=== PATIENT | male | born 1985 | race Caucasian/White ===

== ENCOUNTER 2018-05-10 12:25 | Emergency (ER) | payer OTHER, SELFPAY ==
[2018-05-10 12:31] VITALS: BP 135/85; PULSE 96; RESP 17; TEMP 36.4; O2SAT 100
--- NOTE | 2018-05-10 12:38 | ED.GENADUL_ITS ---
Discharge Plan Disposition Patient Disposition: HOME Condition: Good Discharge Details Chief Complaint: Cellulitis Clinical Impression: Cellulitis of groin, left Primary Care Provider: Vita Hartley ED Provider: Daniel Braun Home Meds and New Rx's Prescriptions: New sulfamethoxazole-trimethoprim [Bactrim DS] 800-160 mg tablet 1 tab PO DAILY Qty: 14 RF: 0 Continue loratadine-pseudoephedrine [Claritin-D 24 Hour] 1 EACH tablet extended release 24 hr 1 tab PO DAILY RF: 0 multivitamin 1 EACH capsule 1 cap PO DAILY RF: 0 Discharge Instructions Instructions: Cellulitis (ED) Additional Instructions: you should be contacted with an appointment with the general surgery clinic in case this needs to be drained if more fluid collects if you have severe pain or fevers return to the emergency department Medical Decision Making pt comes in with cyst in left groin area for a few weeks but last 3-4 days has been more painful recently, tried to jett it this morning and wasn't sure if he got it so came here. Has mild erythema consistent with cellulitis, no visible fluid collection on bedside u/s but does have area that when I sqeezed where he lanced did have some mild white discharge. I suspect he was able to jett it and drained himself, will start abx and have him f/u with general surgery in case it needs to be redrained. HE has no fevers, severe pain and appears well systemically so doubt sepsis or nec fasc at thsi time. Has no testicle pain or swelling so doubt entities such as testicle abscess Differential Diagnosis abscess, cyst, cellulitis HPI General Mode of arrival: ambulatory . Date/Time Provider Initiated Documentation: 05/10/18 12:30 . Limitations to Documentation: no limitations . Information obtained by: patient . History of Present Illness 32 year old M presents to the emergency department with the chief complaint of left groin lesion, described as mild, with intensity rated at 3. Quality is described as burning, Patient reports no radiation. Patient started experiencing this day(s) (4) and it has been constant. No relieving factors improve symptom(s), No exacerbating factors reported . Patient did receive the following treatments prior to arrival, none Related Data Home Medications Medication Instructions Recorded Confirmed multivitamin 1 cap PO DAILY 11/29/17 12/26/17 loratadine-pseudoephedrine 1 tab PO DAILY 12/20/17 12/26/17 [Claritin-D 24 Hour] sulfamethoxazole-trimethoprim 1 tab PO DAILY #14 tab 05/10/18 [Bactrim DS] Previous Rx's Medication Instructions Recorded sulfamethoxazole-trimethoprim 1 tab PO DAILY #14 tab 05/10/18 [Bactrim DS] Allergies Allergy/AdvReac Type Severity Reaction Status Date / Time latex Allergy Unverified 12/26/17 23:08 General Stated Complaint: Cellulitis GIANA: 5 Review of Systems Review of Systems All systems reviewed & are unremarkable except as noted in HPI and below Constitutional Denies chills, Denies fever(s) and Denies weakness Eyes Denies loss of vision ENT Denies change in voice Cardiovascular Denies chest pain and Denies dyspnea Respiratory Denies dyspnea Gastrointestinal Denies abdominal pain, Denies nausea and Denies vomiting Musculoskeletal Denies joint swelling Neurologic Denies loss of vision and Denies weakness [facility] Social History Smoking/Tobacco Use Status: Current every day Social History Smoking/Tobacco Use Status: Current every day Exam Const General: no acute distress Orientation: alert HENMT Head: normal to inspection Ears: external ears normal General nose exam: external nose normal Mouth: moist mucous membranes Eyes General: appearance normal, both eyes and all related structures Neck Neck: normal visual inspection Resp Effort & Inspection: normal respiratory effort and able to speak in complete sentences Cardio Rate: regular rate Male General Exam: Yes normal external exam Penis: normal penis Scrotum: scrotum normal, no ecchymosis and no scrotal swelling Skin General skin exam: other (mild 2x3cm erythema in left groin) Neuro General: alert and oriented x3 Extrem General: normal to inspection Psych Mental Status: mental status grossly normal Course Vital Signs Temperature 36.4 C L 05/10/18 12:31 Pulse 96 H 05/10/18 12:31 Respiratory Rate 17 05/10/18 12:31 Blood Pressure 135/85 05/10/18 12:31 Pulse Oximetry 100 05/10/18 12:31 Temperature 36.4 C L 05/10/18 12:31 Temperature Source Skin 05/10/18 12:31 Pulse 96 H 05/10/18 12:31 Respiratory Rate 17 05/10/18 12:31 Blood Pressure 135/85 05/10/18 12:31 Blood Pressure Position Sitting 05/10/18 12:31 Pulse Oximetry 100 05/10/18 12:31 Oxygen Delivery Method Room Air 05/10/18 12:31 Oxygen Flow Rate 0 05/10/18 12:31
[2018-05-10 12:51] VITALS: PULSE 78; TEMP 36
== END 2018-05-10 12:55 | disposition home or self-care (01) ==
LOC: ER 13:09
PROVIDERS: Emergency Provider Emergency Medicine; PCP Nurse Practitioner
DX: L03.314 Cellulitis of groin (principal)
CPT/HCPCS: 99283

== ENCOUNTER 2021-05-31 11:51 | Emergency (ER) | payer SELFPAY ==
[2021-05-31 12:23] VITALS: BP 151/89; PULSE 84; RESP 16; TEMP 37; O2SAT 97
--- NOTE | 2021-05-31 12:29 | ED.GENADUL_ITS ---
Discharge Plan Disposition Patient Disposition: HOME Condition: Stable Discharge Details Clinical Impression: Abscess of axilla, right Primary Care Provider: None,None ED Provider: Yanet Bolanos Home Meds and New Rx's Prescriptions: New cephalexin 500 mg capsule 500 mg PO QID 7 Days Qty: 28 RF: 0 sulfamethoxazole-trimethoprim [Bactrim DS] 800-160 mg tablet 1 tab PO BID 7 Days Qty: 14 RF: 0 Continued loratadine-pseudoephedrine [Claritin-D 24 Hour] 1 EACH tablet extended release 24 hr 1 tab PO DAILY RF: 0 trazodone 50 mg Tablet 50 mg PO PRN PRNRF: 0 amitriptyline 10 mg Tablet 10 mg PO PRN PRNRF: 0 multivitamin 1 EACH capsule 1 cap PO DAILY RF: 0 Discharge Instructions Instructions: Cellulitis (ED), Abscess (ED) Additional Instructions: Your exam is concerning for 2 abscesses in your right armpit. He does appear to have opened and drained. I am concerned that you have surrounding infection in the skin. Please take the 2 antibiotics prescribed. Even if symptoms improve, please take the entire course. You may use warm compresses to help express any further fluid. You may use Tylenol and/or ibuprofen as needed for discomfort. As we discussed, please use antimicrobial soap to help prevent this in the future. I have referred you to a local primary and have asked that you be rechecked next week. If you develop increased swelling, spreading of the redness, fever/chills redness is worsening symptom please seek care urgently once again. Discharge Data Discharge Date/Time-TO BE ENTERED AT DEPARTURE: 05/31/21 13:43 Medical Decision Making Patient is a 35-year-old male presented with chief complaint of right axillary abscess. He states that he has had difficulty with abscesses historically but that they typically present in the groin. He states that the symptoms began a few days ago and have increasing discomfort. He has no difficulty drainage in the axilla. He denies any fevers or chills. States that the pain has started to radiate around the armpit. On exam, patient appears nontoxic. He does appear slightly anxious. He has 2 focal areas consistent with abscesses. However, they do appear to have drained. Crusted over open areas are noted centrally. There is surrounding erythema but appears to be spreading posterior and inferior. These areas are indurated. I did explore these with the ultrasound and I do not note any fluid collection. History exam is most consistent with draining abscesses with surrounding cellulitis. As I am concerned to cover for MRSA, will cover with Keflex and Bactrim. Encourage hydration. Advised Tylenol and/or ibuprofen for discomfort. I advised warm compresses. Advised antimicrobial soap. Return questions were discussed. Patient does not have a local primary care, I have asked care pepito griffin to ensure follow-up in 1 week for reevaluation. All his concerns were addressed and he is in agreement with plan. HPI General Mode of arrival: ambulatory . Date/Time Provider Initiated Documentation: 05/31/21 12:29 . Information obtained by: patient and RN notes reviewed . History of Present Illness 35 year old M presents to the emergency department with the chief complaint of right axillary pain, redness, swelling, described as severe and similar to prior episodes (has had abscess historically), Quality is described as aching, and is localized to the right and upper extremity. Patient reports radiation to (around the axilla). Patient started experiencing this day(s) and it has been constant. No relieving factors improve symptom(s), Movement worsens symptoms (any pressuree on the axilla) . Patient notes no other symptoms. and rash; denies fever/chills. Patient did receive the following treatments prior to arrival, none Related Data Home Medications Medication Instructions Recorded Confirmed multivitamin 1 cap PO DAILY 11/29/17 12/26/17 loratadine-pseudoephedrine 1 tab PO DAILY 12/20/17 05/31/21 [Claritin-D 24 Hour] amitriptyline 10 mg PO PRN PRN 05/31/21 05/31/21 cephalexin 500 mg PO QID 7 Days #28 cap 05/31/21 sulfamethoxazole-trimethoprim 1 tab PO BID 7 Days #14 tab 05/31/21 [Bactrim DS] trazodone 50 mg PO PRN PRN 05/31/21 05/31/21 Previous Rx's Medication Instructions Recorded cephalexin 500 mg PO QID 7 Days #28 cap 05/31/21 sulfamethoxazole-trimethoprim 1 tab PO BID 7 Days #14 tab 05/31/21 [Bactrim DS] Allergies Allergy/AdvReac Type Severity Reaction Status Date / Time latex Allergy Unverified 12/26/17 23:08 General Stated Complaint: RashLesion GIANA: 4 Review of Systems Constitutional Constitutional: Reports as per HPI, Denies chills and Denies fever(s) Musculoskeletal Musculoskeletal: Reports as per HPI Integumentary/Breasts Skin/Breast: Reports as per HPI Neurologic Neurologic: Reports as per HPI, Denies sensory deficit and Denies paresthesias PFSH All Active Problems (Updated 05/31/21 @ 13:28 by JEY Villegas) Abscess of axilla, right (Acute) Social History Smoking/Tobacco Use Status: Current every day Smoking risk assessment performed?: Yes Alcohol Intake: current Alcohol Intake frequency: holidays/special occasions only Drug use: Occasionally Substance use type: marijuana Do you feel safe at home: Yes Do you feel safe in your relationship?: Yes Exam Const General: cooperative, healthy appearing, comfortable, no acute distress and well developed Nutritional Appearance: average body habitus and well nourished Orientation: alert and awake Chest Chest: normal inspection of the chest (no pain with palpation) Chest/axillae images: 1. 2. 2 abscesses which have drained. Now indurated. No drainage or fluctuance. Surrounding erythema connecting 2 areas. No deep structre involvement palpable, no notable lymphadenopathy Resp Effort & Inspection: normal respiratory effort, able to speak in complete sentences and no respiratory distress Cardio Rate: regular rate Rhythm: regular rhythm Neuro General: patient alert and patient awake Cognition: normal cognition Speech: speech normal Gait: normal gait Sensory Exam: no sensory deficits noted Psych Appearance: grossly normal and well kempt Mental Status: mental status grossly normal Speech and Movement: speech and movement normal Course Vital Signs Vital signs: Vital Signs Temperature 37 C 05/31/21 12:23 Pulse 84 05/31/21 12:23 Respiratory Rate 16 05/31/21 12:23 Blood Pressure 151/89 H 05/31/21 12:23 Pulse Oximetry 97 05/31/21 12:23 Temperature 37 C 05/31/21 12:23 Temperature Source Temporal Artery Scan 05/31/21 12:23 Pulse 84 05/31/21 12:23 Respiratory Rate 16 05/31/21 12:23 Blood Pressure 151/89 H 05/31/21 12:23 Blood Pressure Position Sitting 05/31/21 12:23 Pulse Oximetry 97 05/31/21 12:23 Oxygen Delivery Method Room Air 05/31/21 12:23 Oxygen Flow Rate 0 05/31/21 12:23
--- NOTE | 2021-05-31 13:36 | NUR.NOTE ---
Nursing Note:CARE MANAGMENT GIVEN PT INFO TO ESTABLISH CARE AND TO BE SEEN FOR CYST WITHIN ONE WEEK, [facility]
--- NOTE | 2021-06-03 14:53 | CMACTNOTE_ITS ---
- If Service Date Differs Date of service: 06/03/21 Time of Service: 14:53 Care Management Activity Note Estiven is seen in the ED on 05/31/21 for an abscess of axilla. At the request of ED provider, CM coordinates a referral to Nicole Bone MD, of [facility], on-call provider, to assist Estiven in obtaining a follow up appointment and in establishing care with a PCP.
== END 2021-05-31 13:43 | disposition home or self-care (01) ==
PROVIDERS: Emergency Provider Physician Assistant
DX: L02.411 Cutaneous abscess of right axilla (principal)
CPT/HCPCS: 99283

== ENCOUNTER 2022-07-10 15:34 | Emergency (ER) | payer SELFPAY ==
[2022-07-10 15:36] VITALS: BP 149/88; PULSE 88; RESP 18; TEMP 37.4; O2SAT 98
--- NOTE | 2022-07-10 15:45 | DI.RAD_ITS ---
Exam(s) XR PORTABLE CHEST AP EXAM: XR PORTABLE CHEST AP CLINICAL HISTORY: PUI, R/O Pneumonia TECHNIQUE: 2D digital imaging was performed. COMPARISON: CR CHEST 2 VIEWS PA,LAT from 12/20/2017 FINDINGS: LUNGS: Clear. No pleural abnormality seen. HEART: Normal size. AORTA: Normal diameter. BONES: Unremarkable for age. Soft tissues: Unremarkable. IMPRESSION: No acute findings. DATA REPOSITORY: RADIATION DOSE DELIVERED:
--- NOTE | 2022-07-10 16:06 | W.ED.GENAD ---
Discharge Plan Disposition Patient Disposition: Home Condition: Stable Discharge Details Clinical Impression: COVID-19 Primary Care Provider: None,None ED Provider: Candace Mcadams Home Meds and New Rx's Prescriptions: Continued loratadine-pseudoephedrine [Claritin-D 24 Hour] 1 EACH tablet extended release 24 hr 1 tab PO DAILY trazodone 50 mg Tablet 50 mg PO PRN PRN amitriptyline 10 mg Tablet 10 mg PO PRN PRN Discharge Instructions Instructions: COVID-19 (Coronavirus Disease 2019) (ED) Additional Instructions: You have tested positive for COVID-19. No evidence of pneumonia on your chest x-ray. Please use the albuterol inhaler 1 to 2 puffs every 4-6 hours as needed for cough or wheezing. Please take Tylenol or Ibuprofen with food every 4-6 hours as needed for pain and swelling. May take multivitamin that includes zinc and increase intake of vitamin C. May take [id number] cough and cold medicine if needed. Return to the ER for any worsening shortness of breath, you may consider getting a pulse oximeter which she can get [id number] to monitor your oxygenation. Return to the ER if it is consistently less than 90% while at rest with a good Pleth. Please continue to isolate for the next 5 days and 24 hours after fever resolution. Wear a mask for a total of 10 days. Follow up with primary care provider in 7-10 days. Return to ED sooner if any worsening or concerns. Increase oral fluids. Stand Alone Forms: Work Release Discharge Data Discharge Date/Time-TO BE ENTERED AT DEPARTURE: 07/10/22 17:02 Medical Decision Making 37-year-old male presents to the ER with a chief complaint of URI type symptoms x1 week. He reports sore throat, cough, body aches, chills sweats, left-sided chest wall pain with deep breathing or cough and diarrhea. He did have a negative home COVID test on . He has been increasing oral fluids. Fluvid swab ordered, rapid swab was ordered by staff nuclear weapons officer in triage is positive for COVID. Chest x-ray ordered rule out pneumonia albuterol inhaler and 800 mg ibuprofen. COVID is positive I did discuss this with patient who verbalized understanding. Discussed home care quarantine instructions and strict return instructions. Patient remained hemodynamically stable throughout the remainder of his stay. Chest x-ray shows no evidence of pneumonia. He is this text was generated using [employer] dictation system, please disregard any oddities of phrase or misspellings. Imaging Data Radiologic Study: Imaging: X-Ray Radiologist's impression: EXAM: XR PORTABLE CHEST AP CLINICAL HISTORY: PUI, R/O Pneumonia TECHNIQUE: 2D digital imaging was performed. COMPARISON: CR CHEST 2 VIEWS PA,LAT from 12/20/2017 FINDINGS: LUNGS: Clear. No pleural abnormality seen. HEART: Normal size. AORTA: Normal diameter. BONES: Unremarkable for age. Soft tissues: Unremarkable. IMPRESSION: No acute findings. HPI General Mode of arrival: ambulatory. Date/Time Provider Initiated Documentation: 07/10/22 15:38. Limitations to Documentation: no limitations. Information obtained by: patient, RN notes reviewed and old records reviewed. HPI Narrative: 37-year-old male presents to the ER with a chief complaint of URI type symptoms x1 week. He reports sore throat, cough, body aches, chills sweats, left-sided chest wall pain with deep breathing or cough and diarrhea. He did have a negative home COVID test on . He has been increasing oral fluids. Has not taken any Tylenol or ibuprofen today. Past medical history includes anxiety bipolar disorder and PTSD. He does endorse marijuana denies alcohol. Related Data Home Medications Medication Instructions Recorded Confirmed loratadine-pseudoephedrine ER 10 1 tab PO DAILY 12/20/17 05/31/21 mg-240 mg tablet,extended [id number] (Claritin-D 24 Hour) amitriptyline 10 mg tablet 10 mg PO PRN PRN 05/31/21 07/10/22 trazodone 50 mg tablet 50 mg PO PRN PRN 05/31/21 07/10/22 Allergies Allergy/AdvReac Type Severity Reaction Status Date / Time latex Allergy Unverified 07/10/22 15:42 General Stated Complaint: GenMedical GIANA: 3 Review of Systems All systems reviewed & are unremarkable except as noted in HPI and below Cardiovascular Cardiovascular: Reports dyspnea Respiratory Respiratory: Reports cough, Denies hemoptysis, Reports pain with cough, Reports dyspnea, Denies stridor and Denies wheezing Gastrointestinal Gastrointestinal: Denies abdominal pain, Reports diarrhea, Reports nausea (Resolved) and Reports vomiting (Resolved) Allergic/Immunologic Allergic/Immunologic: Denies wheezing PFSH All Active Problems (Updated 07/10/22 @ 16:53 by Candace Mcadams NP) COVID-19 (Acute) Social History Smoking/Tobacco Use Status: Current every day Smoking risk assessment performed?: Yes Alcohol Intake: current Alcohol Intake frequency: holidays/special occasions only Drug use: Occasionally Substance use type: marijuana Do you feel safe at home: Yes Do you feel safe in your relationship?: Yes Exam Narrative Exam Narrative: Constitutional: Alert and oriented x3. Appears stated age. Normal body habitus. Head: Normocephalic, no trauma. Eyes: Pupils PERRL, Red reflex noted, EOM's intact. Eyelids symmetrical without lesions, discharge, or swelling. ENT: Left tympanic membrane has a fluid effusion behind it, right TM within normal limits, external ear normal to inspection, no mastoid TTP, swelling, or erythema, Nasal turbinates slightly boggy no nasal discharge. Normal dentition, Posterior pharynx erythemic, no exudate. Chest: RRR, Normal S1, S2, distal pulses intact. Resp: Lungs clear to auscultation bilaterally, no wheezes, rales, or Mild Rhonchi in the bases with cough Abdomen: Soft, non-distended, Normoactive bowel sounds all 4 quads. Musculoskeletal: Normal gait, 5/5 strength to all four extremities. Skin: No suspicious rashes or lesions. Capillary refill less than 2 sec. Hematologic/Lymphatic: No ecchymosis, no lymphadenopathy. Course Vital Signs Vital signs: Vital Signs Temperature 37.4 C 07/10/22 15:36 Pulse 88 07/10/22 15:36 Respiratory Rate 18 07/10/22 15:36 Blood Pressure 149/88 H 07/10/22 15:36 Pulse Oximetry 98 07/10/22 15:36 Temperature 37.4 C 07/10/22 15:36 Temperature Source Oral 07/10/22 15:36 Pulse 88 07/10/22 15:36 Respiratory Rate 18 07/10/22 15:36 Respiratory Effort Non-Labored 07/10/22 15:41 Blood Pressure 149/88 H 07/10/22 15:36 Blood Pressure Position Sitting 07/10/22 15:36 Pulse Oximetry 98 07/10/22 15:36 Oxygen Delivery Method Room Air 07/10/22 15:36 Oxygen Flow Rate 0 07/10/22 15:36 Pain Level 7 07/10/22 15:36
[2022-07-10] MEDS: Albuterol HFA 8 GM 60 PUFF INH IH (16:15)
[2022-07-10] MEDS: Ibuprofen 800 MG TAB PO (16:16)
[2022-07-10 16:17] VITALS: RESP 18
[2022-07-10 16:44] LABS: Influenza A PCR Negative (Negative); Influenza B PCR Negative (Negative); RSV PCR Negative (Negative)
[2022-07-10 16:48] LABS: COVID-19 PCR Positive (Negative); Source Nasopharynx
[2022-07-10 17:01] VITALS: BP 145/80; PULSE 88; RESP 18; TEMP 37.4; O2SAT 98
== END 2022-07-10 17:02 | disposition home or self-care (01) ==
PROVIDERS: Emergency Provider Registered Nurse Emergency
DX: U07.1 COVID-19 (principal)
CPT/HCPCS: 87637; 94640; 99283; 71045

== ENCOUNTER 2022-11-21 08:24 | Emergency (ER) | payer SELFPAY ==
[2022-11-21 08:28] VITALS: BP 125/74; PULSE 69; RESP 20; TEMP 36.8; O2SAT 99
[2022-11-21] MEDS: Bupivacaine 0.5% Pres-Free 30 ML VIAL (09:26)
--- NOTE | 2022-11-21 11:18 | ED.GENADUL_ITS ---
Discharge Plan Disposition Patient Disposition: Home Discharge Details Clinical Impression: Trapezius strain Primary Care Provider: None,None ED Provider: Randi Watts Home Meds and New Rx's Prescriptions: New cyclobenzaprine 10 mg tablet 10 mg PO TID PRNQty: 10 0RF Continued Claritin-D 24 Hour 1 EACH tablet extended release 24 hr 1 tab PO DAILY trazodone 50 mg Tablet 50 mg PO PRN PRN amitriptyline 10 mg Tablet 10 mg PO PRN PRN Patient Comments: patient states im no longer on that one multivitamin Tablet 1 tab PO DAILY Discharge Instructions Instructions: Lower Back Exercises (ED) Additional Instructions: Take ibuprofen and Tylenol as needed for pain Motrin 600 mg every 8 hours as needed for pain Take Flexeril as needed for musculoskeletal pain Limit lifting, pulling, pushing until symptomatic improvement. Stand Alone Forms: Work Release Medical Decision Making Reproducible pain on this patient who presents with upper back pain in the trapezius area, no rashes or lesions, lungs clear to auscultation, distal pulses intact, strength and sensation intact all 4 extremities, no midline back pain or flank pain, no chest tenderness or abdominal tenderness, no acute distress Will offer trigger point injection with bupivacaine to the trapezius region Patient received trigger point injection, almost complete alleviation in patient's pain complaints No indication for x-ray, low suspicion for fracture clinically Neurovascularly intact Low suspicion for intrathoracic process clinically, no hypoxia, tachypnea, tachycardia HPI General Date/Time Provider Initiated Documentation: 11/21/22 08:26 . HPI Narrative: This 37-year-old male presents with report of upper back pain that started few days ago at work. He states he has been doing a lot of heavy pulling pushing and moving. He states he has worked every day for the past 90 days. He thinks that he has not had time to heal in between injuries. He denies any strength or sensation changes to extremities. He denies any chest pain or shortness of breath. He denies radiation of pain into his arms or legs. Denies any changes in bowel or bladder. Denies stiff neck or fever. Denies any headache. Denies specific traumatic event. Related Data Home Medications Medication Instructions Recorded Confirmed loratadine-pseudoephedrine ER 10 1 tab PO DAILY 12/20/17 11/21/22 mg-240 mg tablet,extended [id number] (Claritin-D 24 Hour) amitriptyline 10 mg tablet 10 mg PO PRN PRN 05/31/21 07/10/22 trazodone 50 mg tablet 50 mg PO PRN PRN 05/31/21 11/21/22 cyclobenzaprine 10 mg tablet 10 mg PO TID PRN #10 tabs 11/21/22 multivitamin 1 tab PO DAILY 11/21/22 11/21/22 Previous Rx's Medication Instructions Recorded cyclobenzaprine 10 mg tablet 10 mg PO TID PRN #10 tabs 11/21/22 Allergies Allergy/AdvReac Type Severity Reaction Status Date / Time latex Allergy Unverified 11/21/22 08:31 General Stated Complaint: Nk/Back Pain GIANA: 3 PFSH All Active Problems (Updated 11/21/22 @ 09:17 by JEY Neri) COVID-19 (Acute) Trapezius strain (Acute) Social History Smoking risk assessment performed?: No Alcohol Intake: current Alcohol Intake frequency: holidays/special occasions only Drug use: Daily Substance use type: marijuana Do you feel safe at home: Yes Do you feel safe in your relationship?: Yes Course Vital Signs Vital signs: Vital Signs Temperature 36.8 C 11/21/22 08:28 Pulse 69 11/21/22 08:28 Respiratory Rate 20 11/21/22 08:28 Blood Pressure 125/74 11/21/22 08:28 Pulse Oximetry 99 11/21/22 08:28 Temperature 36.8 C 11/21/22 08:28 Pulse 69 11/21/22 08:28 Respiratory Rate 20 11/21/22 08:28 Respiratory Effort Normal 11/21/22 08:33 Blood Pressure 125/74 11/21/22 08:28 Pulse Oximetry 99 11/21/22 08:28 Oxygen Delivery Method Room Air 11/21/22 08:28 Oxygen Flow Rate 0 11/21/22 08:28 Pain Level 7 11/21/22 08:28 Comment 10/10 pain with movement 11/21/22 08:28
== END 2022-11-21 10:29 | disposition home or self-care (01) ==
PROVIDERS: Emergency Provider Physician Assistant
DX: S46.812A Strain of other muscles, fascia and tendons at shoulder and upper arm level, left arm, initial encounter (principal); Y99.0 Civilian activity done for income or pay
CPT/HCPCS: 20552

== ENCOUNTER 2023-07-24 08:04 | Emergency (ER) | payer SELFPAY ==
[2023-07-24 08:09] VITALS: BP 135/91; PULSE 80; RESP 16; TEMP 36.4; O2SAT 100
--- NOTE | 2023-07-24 08:33 | W.ED.GENAD ---
HPI General Date/Time Provider Initiated Documentation: 07/24/23 08:17. HPI Narrative: This 38-year-old male presents with sore throat, runny nose, facial for sinus congestion. Symptoms started yesterday per patient. Family member sick with similar symptoms, denies any chest pain or shortness of breath. States he tried to work today and felt exhausted and left to go home. States he needs a note for work. Related Data Home Medications Medication Instructions Recorded Confirmed amitriptyline 10 mg tablet 10 mg PO PRN PRN 05/31/21 07/24/23 trazodone 50 mg tablet 50 mg PO PRN PRN 05/31/21 07/24/23 Allergies Allergy/AdvReac Type Severity Reaction Status Date / Time latex Allergy Hives Unverified 07/24/23 08:08 General Stated Complaint: Sorethroat GIANA: 4 Course Vital Signs Vital signs: Vital Signs Temperature 36.4 C L 07/24/23 08:09 Pulse 80 07/24/23 08:09 Respiratory Rate 16 07/24/23 08:09 Blood Pressure 135/91 H 07/24/23 08:09 Pulse Oximetry 100 07/24/23 08:09 Temperature 36.4 C L 07/24/23 08:09 Temperature Source Oral 07/24/23 08:09 Pulse 80 07/24/23 08:09 Respiratory Rate 16 07/24/23 08:09 Respiratory Effort Normal, Non-Labored 07/24/23 08:11 Blood Pressure 135/91 H 07/24/23 08:09 Pulse Oximetry 100 07/24/23 08:09 Oxygen Delivery Method Room Air 07/24/23 08:09 Oxygen Flow Rate 0 07/24/23 08:09 Pain Level 4 07/24/23 08:09 Medical Decision Making This 38-year-old male presenting with upper respiratory symptoms, lungs clear to auscultation, afebrile and nontoxic, no acute distress, rhinorrhea noted, uvula midline, oropharynx patent, no erythema or abscess to oropharynx Suspect patient has upper respiratory infection, will continue with supportive care, reviewed with patient, work note for 2-day supply Vital stable, return precautions reviewed and patient expressed understanding Quality:SDOH Health Related Social Needs: No Data to Display PFSH All Active Problems (Updated 07/24/23 @ 08:26 by JEY Neri) Upper respiratory infection (Acute) COVID-19 (Acute) Social History Smoking/Tobacco Use Status: Current every day Tobacco Type: cigarettes Years smoked: 17 Smoking risk assessment performed?: Yes Alcohol Intake: current Alcohol Intake frequency: holidays/special occasions only Drug use: Daily Substance use type: marijuana Housing: house Do you feel safe at home: Yes Do you feel safe in your relationship?: Yes PAWSS Have you Been Recently Intoxicated or Drunk Within the Last 30 days?: No Have you Ever Experienced Previous Episodes of Alcohol Withdrawal?: No Have you ever Experienced Withdrawal Seizures?: No Have you ever Experienced Delirium Tremens(DT)s?: No Have you ever undergone Alcohol Rehabilitation Treatment (i.e, inpt ot outpatient treatment programs)?: No Have you ever Experienced Blackouts?: No Have you ever Combined Alcohol with other Downers within the last 90 days?: No Have you ever Combined Alcohol with any other Substance of Abuse during the last 90 days?: No Result: 0 Discharge Plan Disposition Patient Disposition: Home Discharge Details Clinical Impression: Upper respiratory infection ED Provider: Randi Watts Home Meds and New Rx's Prescriptions: Continued trazodone 50 mg Tablet 50 mg PO PRN PRN amitriptyline 10 mg Tablet 10 mg PO PRN PRN Patient Comments: patient states im no longer on that one Discharge Instructions Instructions: Upper Respiratory Infection (ED) Additional Instructions: Take ibuprofen and/or Tylenol for symptom control 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
== END 2023-07-24 08:38 | disposition home or self-care (01) ==
LOC: ER 08:44
PROVIDERS: Emergency Provider Physician Assistant
DX: J06.9 Acute upper respiratory infection, unspecified (principal)
CPT/HCPCS: 99283

== ENCOUNTER 2025-01-25 19:27 | Emergency (ER) | payer SELFPAY ==
[2025-01-25 19:28] VITALS: BP 133/82; PULSE 80; RESP 18; TEMP 36.2; O2SAT 98
[2025-01-25 19:32] VITALS: BP 133/78; PULSE 91; RESP 18; TEMP 36.7; O2SAT 98
--- NOTE | 2025-01-25 19:53 | ED.GENADUL_ITS ---
Discharge Plan Disposition Patient Disposition: Home Condition: Stable Discharge Details Clinical Impression: Sinusitis, Upper respiratory infection, viral Primary Care Provider: Unknown,Unknown ED Provider: Candace Mcadams Home Meds and New Rx's Prescriptions: New prednisone 50 mg tablet 50 mg PO DAILY 5 Days Qty: 5 0RF Rx Instructions: Take 1 tablet daily for the next 5 days No Action trazodone 50 mg Tablet 50 mg PO PRN PRN amitriptyline 10 mg Tablet 10 mg PO PRN PRN Patient Comments: patient states im no longer on that one Allergy Relief D-24hr 10-240 mg tablet extended release 24 hr 1 tab PO DAILY Discharge Instructions Instructions: Cough, runny nose, and the common cold, Sinusitis, Adult ED Additional Instructions: At this time your rapid strep is negative, negative COVID flu and RSV. I do suspect that you may have sinus congestion, however no antibiotics are necessary at this time. You may use Flonase or similar [id number] nasal spray as directed. Use the albuterol inhaler 1 or 2 puffs every 4-6 hours as needed for shortness of breath. Please take the prednisone as directed you are given the first dose here in the department this will help to decrease the inflammation in your airways. Gargle with warm salt water up to 3 times daily as needed. Please take Tylenol or Ibuprofen with food every 4-6 hours as needed for pain and swelling. Follow up with primary care provider in 3-5 days. Return to ED sooner if any worsening or concerns. Stand Alone Forms: Work Release Referrals: Primary Care Provider [Outside] - 2 weeks Referral Note: Establish care Clinical Impression: Sinusitis; Upper respiratory infection, viral Chan Palmer NP [NURSE PRACTITIONER, Medicine] Referral Note: Establish care HPI General Mode of arrival: ambulatory . Date/Time Provider Initiated Documentation: 01/25/25 19:34 . Limitations to Documentation: no limitations . Information obtained by: patient, RN notes reviewed and old records reviewed . Related Data Home Medications ?Medication ?Instructions ?Recorded ?Confirmed amitriptyline 10 mg tablet 10 mg PO PRN PRN 05/31/21 0 01/25/25 trazodone 50 mg tablet 50 mg PO PRN PRN 05/31/21 loratadine-pseudoephedrine ER 10 1 tab PO DAILY 01/25/25 mg-240 mg tablet,extended [id number] (Allergy Relief D-24hr) prednisone 50 mg tablet 50 mg PO DAILY Inflammation 5 days 01/25/25 #5 tabs Previous Rx's ?Medication ?Instructions ?Recorded prednisone 50 mg tablet 50 mg PO DAILY Inflammation 5 days 01/25/25 #5 tabs Allergies Allergy/AdvReac Type Severity Reaction Status Date / Time latex Allergy Hives Unverified 01/25/25 19:33 General Stated Complaint: RespSymp GIANA: 3 Exam Narrative Exam Narrative: Constitutional: Alert and oriented x3. Appears stated age. Normal body habitus. Head: Normocephalic, no trauma. Eyes: Pupils PERRL, Red reflex noted, EOM's intact. Eyelids symmetrical without lesions, discharge, or swelling. ENT: Left tympanic membrane with erythema bulging. Report, right TM within normal. External ear normal to inspection, no mastoid TTP, swelling, or erythema, Nasal turbinates boggy, no nasal discharge. Normal dentition, Posterior pharynx erythemic, questionable exudate noted on the left side, Uvula midline Chest: RRR, Normal S1, S2, distal pulses intact. Resp: Lungs clear to auscultation bilaterally, no wheezes, rales, or rhonchi. Hematologic/Lymphatic: No ecchymosis, no lymphadenopathy. Course Vital Signs Vital signs: Vital Signs Temperature 36.2 C L 01/25/25 19:28 Pulse 80 01/25/25 19:28 Respiratory Rate 18 01/25/25 19:28 Blood Pressure 133/82 01/25/25 19:28 Pulse Oximetry 98 01/25/25 19:28 Temperature 36.2 C L 01/25/25 19:28 Temperature Source Temporal Artery Scan 01/25/25 19:28 Pulse 80 01/25/25 19:28 Respiratory Rate 18 01/25/25 19:28 Blood Pressure 133/82 01/25/25 19:28 Pulse Oximetry 98 01/25/25 19:28 Oxygen Delivery Method Room Air 01/25/25 19:28 Oxygen Flow Rate 0 01/25/25 19:28 Pain Level 5 01/25/25 19:28 Medical Decision Making 39-year-old male presents to the emergency department complaining of sore throat, sinus pressure, shortness of breath. Endorses Congestion, No significant fever chills. He does work at a fast [employer]. On exam he does have a erythemic posterior oropharynx, small white patch noted in the left side, left TM is retracted no bulging, no erythema. Right TM within normal limits. Patient is complaining of frontal and maxillary sinus pressure. Speaking in full sentences. Lungs are clear to auscultation bilaterally no wheezing rhonchi noted bilaterally. Differential diagnosis includes but limited to viral illness, sinusitis, less likely pneumonia, strep throat. Rapid strep ordered, rapid COVID flu swab ordered. Neg strep, Neg Fluvid, will give prednisone 50 milligrams x 5 days, inhaler and home care instructions and follow-up. This text was generated using [employer] dictation system, please disregard any oddities of phrase or misspellings. PFSH All Active Problems (Updated 01/25/25 @ 20:27 by Candace Mcadams NP) Upper respiratory infection, viral (Acute) Sinusitis (Acute) COVID-19 (Acute) Social History Smoking/Tobacco Use Status: Current every day Tobacco Type: cigarettes Years smoked: 17 Smoking risk assessment performed?: Yes Alcohol Intake: current Alcohol Intake frequency: holidays/special occasions only Drug use: Daily Substance use type: marijuana Housing: house Do you feel safe at home: Yes Do you feel safe in your relationship?: Yes
[2025-01-25 20:18] LABS: COVID-19 PCR Negative (Negative); RSV PCR Negative (Negative)
[2025-01-25] MEDS: Albuterol HFA 8 GM 60 PUFF INH IH (20:53)
[2025-01-25] MEDS: predniSONE 20 MG TAB 40 MG PO (20:53)
[2025-01-25 21:03] VITALS: BP 148/89; PULSE 88; RESP 20; TEMP 36.8; O2SAT 99
== END 2025-01-25 21:12 | disposition home or self-care (01) ==
LOC: ER 20:52
PROVIDERS: Emergency Medicine; Emergency Provider Registered Nurse Emergency
DX: J06.9 Acute upper respiratory infection, unspecified (principal); J32.9 Chronic sinusitis, unspecified; R07.0 Pain in throat; Z72.0 Tobacco use
CPT/HCPCS: 99283 ×2; 87880; 87637; 87081; J7512